=== PATIENT | female | born 1985 ===

== ENCOUNTER 2017-02-11 22:17 | Emergency (ER) | payer SELFPAY ==
[2017-02-11 22:31] VITALS: BMI 22.6
[2017-02-11 22:35] VITALS: BP 146/98; PULSE 82; RESP 18; TEMP 98.7; O2SAT 100
--- NOTE | 2017-02-11 23:44 | ED PDOC ---
Arrival/HPI - History of Present Illness Time/Duration: Other (several weeks) Symptom Onset: Gradual Symptom Course: Unchanged Activities at Onset: Light Context: Home - General Chief Complaint: Abnormal Skin Integrity Time Seen by Provider: 02/11/17 22:48 - History of Present Illness Narrative History of Present Illness (Text): 02/11/17 23:58 31 year old female who presents to the Emergency department complaining of a pruritic rash to the dorsal aspect of bilateral hands and forearms, which is worse at night, for the past several weeks. Patient states she went to the [facility] in [place], was given prednisone for 5 days, but denies any significant improvement. Patient denies any changes in lotions/soaps, recent travel, URI symptoms, fever, chills, nausea, vomiting, diarrhea, headache, or any other complaints. Patient states no one else at home has a rash, states she is the only one. (Chencho STOVER,Lynn Leger) Past Medical History - Provider Review Nursing Documentation Reviewed: Yes - Past History Past History: Non-Contributing - Infectious Disease Hx of Infectious Diseases: None - Cardiac Hx Cardiac Disorders: No - Pulmonary Hx Respiratory Disorders: No - Neurological Hx Neurological Disorder: No - HEENT Hx HEENT Disorder: No - Renal Hx Renal Disorder: No - Endocrine/Metabolic Hx Endocrine Disorders: No - Hematological/Oncological Hx Blood Disorders: No - Integumentary Hx Dermatological Disorder: No - Musculoskeletal/Rheumatological Hx Arthritis: Yes - Gastrointestinal Hx Gastrointestinal Disorders: No - Genitourinary/Gynecological Hx Genitourinary Disorders: No - Psychiatric Hx Psychophysiologic Disorder: No Hx Substance Use: No - Surgical History Hx Section: Yes (x2) - Anesthesia Hx Anesthesia: Yes Hx Anesthesia Reactions: No Hx Malignant Hyperthermia: No Family/Social History - Physician Review Nursing Documentation Reviewed: Yes Family/Social History: Unknown Family HX Smoking Status: Never Smoked Hx Alcohol Use: No Hx Substance Use: No Allergies/Home Meds Allergies/Adverse Reactions: Allergies No Known Allergies Allergy (Verified 04/23/16 14:05) Review of Systems - Physician Review All systems were reviewed & negative as marked: Yes - Review of Systems Constitutional: Normal. absent: Fevers Eyes: Normal ENT: Normal Respiratory: Normal. absent: SOB, Cough Cardiovascular: Normal. absent: Chest Pain Gastrointestinal: Normal. absent: Abdominal Pain, Diarrhea, Nausea, Vomiting Genitourinary Female: Normal. absent: Dysuria, Frequency, Hematuria, Urine Output Changes Musculoskeletal: Normal. absent: Back Pain, Neck Pain Skin: Rash Neurological: Normal. absent: Headache, Dizziness Endocrine: Normal Hemo/Lymphatic: Normal Psychiatric: Normal Physical Exam Vital Signs Reviewed: Yes Temperature: Afebrile Blood Pressure: Normal Pulse: Regular Respiratory Rate: Normal Appearance: Positive for: Well-Appearing, Non-Toxic, Comfortable Pain Distress: None Mental Status: Positive for: Alert and Oriented X 3 - Systems Exam Head: Present: Atraumatic, Normocephalic Pupils: Present: PERRL Extroacular Muscles: Present: EOMI Conjunctiva: Present: Normal Mouth: Present: Moist Mucous Membranes Neck: Present: Normal Range of Motion Respiratory/Chest: Present: Clear to Auscultation, Good Air Exchange. No: Respiratory Distress, Accessory Muscle Use Cardiovascular: Present: Regular Rate and Rhythm, Normal S1, S2. No: Murmurs Abdomen: Present: Normal Bowel Sounds. No: Tenderness, Distention, Peritoneal Signs Back: Present: Normal Inspection Upper Extremity: Present: Normal Inspection. No: Cyanosis, Edema Lower Extremity: Present: Normal Inspection. No: Edema Neurological: Present: GCS=15, CN II-XII Intact, Speech Normal Skin: Present: Warm, Dry, Rashes (Multiple erythematous raised flat lesions to dorsal aspects of bilteral hands and elbows), Normal Color Psychiatric: Present: Alert, Oriented x 3, Normal Insight, Normal Concentration Vital Signs Temp Pulse Resp BP Pulse Ox 02/11/17 22:35 98.7 F 82 18 146/98 H 100 Medical Decision Making ED Course and Treatment: 02/11/17 23:50 31 year old female who presents to the Emergency department complaining of a pruritic rash to the dorsal aspect of bilateral hands and forearms. Based on history and exam, to consider scabies and will treat as such. Instructed to f/u with the clinic, take medication as prescribed. (Chencho STOVER ,Lynn Leger) - PA / NETWORK SUPPORT ENGINEER / Resident Statement MD/DO has reviewed & agrees with the documentation as recorded. - Scribe Statement The provider has reviewed the documentation as recorded by the Scribe - Scribe Statement Nataliya Trujillo Provider Scribe Attestation: All medical record entries made by the Scribe were at my direction and personally dictated by me. I have reviewed the chart and agree that the record accurately reflects my personal performance of the history, physical exam, medical decision making, and the department course for this patient. I have also personally directed, reviewed, and agree with the discharge instructions and disposition. (Chencho STOVER,Lynn Leger) Disposition/Present on Arrival - Present on Arrival Any Indicators Present on Arrival: No History of DVT/PE: No History of Uncontrolled Diabetes: No Urinary Catheter: No History of Decub. Ulcer: No History Surgical Site Infection Following: None - Disposition Have Diagnosis and Disposition been Completed?: Yes Disposition Time: 23:15 Patient Plan: Discharge - Disposition Diagnosis: Rash, Scabies Disposition: HOME/ ROUTINE Condition: STABLE Discharge Instructions (ExitCare): Scabies (ED) Print Language: AZERI Additional Instructions: Thank you for letting us take care of you today. You were treated for rash, consider scabies. The emergency medical care you received today was directed at your acute symptoms. If you were prescribed any medication, please fill it and take as directed. It may take several days for your symptoms to resolve. Return to the Emergency Department if your symptoms worsen, do not improve, or if you have any other problems. Please contact your doctor in 2 days for re-evaluation and follow up / or call one of the physicians/clinics you have been referred to that are listed on the Patient Visit Information form that is included in your discharge packet. Bring any paperwork you were given at discharge with you along with any medications you are taking to your follow up visit. Our treatment cannot replace ongoing medical care by a primary care provider (PCP) outside of the emergency department. Thank you for allowing the [facility] team to be part of your care today. Prescriptions: Cetirizine HCl [Zyrtec] 10 mg PO DAILY #30 capsule Permethrin [Elimite] 60 gm TP ONCE #50 cream..g. Referrals: [facility] at [facility] [place] [Outside] - Follow up with primary Mary Floyd MD [Staff Provider] - Follow up with primary Forms: [employer] (Luxembourgish), WORK NOTE
== END 2017-02-12 00:10 | disposition home or self-care (01) ==
LOC: ED 22:17
DX: B86 Scabies (principal)

== ENCOUNTER 2017-05-16 11:54 | Emergency (ER) | payer OTHER ==
[2017-05-16 12:09] VITALS: BMI 22.4
[2017-05-16 12:18] VITALS: TEMP 97.8
--- NOTE | 2017-05-16 12:18 | ED PDOC ---
Arrival/HPI - General Time Seen by Provider: 05/16/17 12:05 Historian: Patient - History of Present Illness Narrative History of Present Illness (Text): 05/16/17 12:13 31yo female with PMHx of anxiety who present with complaint of chest pain. Notes that chest pain started when she bent down at work, to hand picker something. Patient has been seen here for same complaint in ED. She denies SOB, diaphoresis , dizziness, nausea, vomiting, abdominal pain, cough, trauma, back pain, any other complaint. Past Medical History - Provider Review Nursing Documentation Reviewed: Yes - Past History Past History: Non-Contributing - Infectious Disease Hx of Infectious Diseases: None - Cardiac Hx Cardiac Disorders: No - Pulmonary Hx Respiratory Disorders: No - Neurological Hx Neurological Disorder: No - HEENT Hx HEENT Disorder: No - Renal Hx Renal Disorder: No - Endocrine/Metabolic Hx Endocrine Disorders: No - Hematological/Oncological Hx Blood Disorders: No - Integumentary Hx Dermatological Disorder: No - Musculoskeletal/Rheumatological Hx Arthritis: Yes - Gastrointestinal Hx Gastrointestinal Disorders: No - Genitourinary/Gynecological Hx Genitourinary Disorders: No - Psychiatric Hx Psychophysiologic Disorder: No Hx Substance Use: No - Surgical History Hx Section: Yes (x2) - Anesthesia Hx Anesthesia: Yes Hx Anesthesia Reactions: No Hx Malignant Hyperthermia: No Family/Social History - Physician Review Nursing Documentation Reviewed: Yes Family/Social History: Unknown Family HX Smoking Status: Never Smoked Hx Alcohol Use: No Hx Substance Use: No Allergies/Home Meds Allergies/Adverse Reactions: Allergies No Known Allergies Allergy (Verified 04/23/16 14:05) Home Medications: Home Meds Medication Instructions Recorded Confirmed No Known Home Med 05/16/17 05/16/17 Review of Systems - Physician Review All systems were reviewed & negative as marked: Yes - Review of Systems Constitutional: Normal Eyes: Normal ENT: Normal Respiratory: Normal Cardiovascular: Chest Pain. absent: Palpitations, Edema, Calf Pain Gastrointestinal: Normal Genitourinary Female: Normal Musculoskeletal: Normal Skin: Normal Neurological: Normal Endocrine: Normal Hemo/Lymphatic: Normal Psychiatric: Normal Physical Exam Vital Signs Reviewed: Yes Vital Signs Temp Pulse Resp BP Pulse Ox 05/16/17 13:26 67 18 118/74 98 05/16/17 12:19 97.8 F 69 18 120/88 98 05/16/17 12:14 97.8 F 69 16 120/88 99 Temperature: Afebrile Blood Pressure: Normal Pulse: Regular Respiratory Rate: Normal Appearance: Positive for: Well-Appearing, Non-Toxic, Comfortable Pain Distress: None Mental Status: Positive for: Alert and Oriented X 3 - Systems Exam Head: Present: Atraumatic, Normocephalic Pupils: Present: PERRL Extroacular Muscles: Present: EOMI Conjunctiva: Present: Normal Mouth: Present: Moist Mucous Membranes Neck: Present: Normal Range of Motion Respiratory/Chest: Present: Clear to Auscultation, Good Air Exchange. No: Respiratory Distress, Accessory Muscle Use, Wheezes, Decreased Breath Sounds, Rales, Retracting, Rhonchi Cardiovascular: Present: Regular Rate and Rhythm, Normal S1, S2. No: Murmurs Abdomen: Present: Normal Bowel Sounds. No: Tenderness, Distention, Peritoneal Signs Back: Present: Normal Inspection Upper Extremity: Present: Normal Inspection. No: Cyanosis, Edema Lower Extremity: Present: Normal Inspection. No: Edema Neurological: Present: GCS=15, CN II-XII Intact, Speech Normal Skin: Present: Warm, Dry, Normal Color. No: Rashes Psychiatric: Present: Alert, Oriented x 3, Normal Insight, Normal Concentration Medical Decision Making ED Course and Treatment: 05/16/17 12:15 PT presented for stated history she was hemodynamically stable and neurologically intact in ED. Review of her chart, show she had a normal Echo, holter monitor, and cardiac stress in July of this year. EKG NSR @69bpm Chest xray ordered and pending. Ibuprofen given for pain control. Symptoms might be secondary to anxiety. she will be DC home if xray is negative to f/u with her PMD. 05/16/17 13:32 CXR NAD PT DC home to f/u with her PMD. Her pain resolved in ED with medication. - RAD Interpretation Radiology Orders: 05/16/17 12:12 CHEST TWO VIEWS (PA/LAT) [RAD] Stat - Medication Orders Current Medication Orders: Discontinued Medications Ibuprofen (Motrin Tab) 600 mg PO STAT STA Stop: 05/16/17 12:13 Last Admin: 05/16/17 12:23 Dose: 600 mg MAR Pain/Vitals Document 05/16/17 12:23 MS (Rec: 05/16/17 12:25 [facility] Pain Reassessment Is This A Pain ReAssessment? No Sleep Is patient sleeping during reassessment? No Presence of Pain Presence of Pain Yes Pain Scale Used Pain Scale Used Numeric Location Left, Right or Bilateral Left Pain Location Body Site Chest Description Intermittent Disposition/Present on Arrival - Present on Arrival Any Indicators Present on Arrival: No History of DVT/PE: No History of Uncontrolled Diabetes: No Urinary Catheter: No History Surgical Site Infection Following: None - Disposition Have Diagnosis and Disposition been Completed?: Yes Diagnosis: Chest pain in adult Disposition: HOME/ ROUTINE Disposition Time: 13:40 Patient Plan: Discharge Patient Problems: Current Active Problems Problem Status Onset Chest pain in adult Acute Condition: STABLE Discharge Instructions (ExitCare): Chest Pain (ED) Additional Instructions: Follow up with your doctor Return to ED for any new or worsening symptoms Referrals: [facility] [place] [Outside] - Follow up with primary
[2017-05-16 12:20] VITALS: RESP 18
[2017-05-16 13:49] VITALS: BP 121/88; PULSE 70; O2SAT 99
--- NOTE | 2017-05-16 13:56 | RAD ---
HISTORY: chest pain COMPARISON: No prior. TECHNIQUE: Chest PA and lateral FINDINGS: LUNGS: No active pulmonary disease. PLEURA: No significant pleural effusion identified. No pneumothorax apparent. CARDIOVASCULAR: Normal. OSSEOUS STRUCTURES: No significant abnormalities. VISUALIZED UPPER ABDOMEN: Normal. OTHER FINDINGS: None. IMPRESSION: No active disease.
--- NOTE | 2017-05-16 17:45 | CARD ---
APPROVED REPORT EKG Measurement Heart [id number] <Conclusion> Normal sinus rhythm Normal ECG
== END 2017-05-16 13:49 | disposition home or self-care (01) ==
LOC: ED 11:54
DX: R07.9 Chest pain, unspecified (principal)

== ENCOUNTER 2017-12-27 22:24 | Emergency (ER) | payer SELFPAY ==
[2017-12-27 23:48] VITALS: BMI 23.1
[2017-12-27 23:51] VITALS: BP 129/81; PULSE 60; RESP 16; TEMP 98.2; O2SAT 99
[2017-12-27] MEDS ORDERED: Bacitracin 500 Units/gm Oint Foilpak UD TOP ONE (23:52)
[2017-12-27] MEDS ORDERED: TDAP Vaccine 0.5 mL Syr IM ONE (23:52)
--- NOTE | 2017-12-27 23:59 | ED PDOC ---
Arrival/HPI - General Chief Complaint: Abnormal Skin Integrity Time Seen by Provider: 12/27/17 23:49 Historian: Patient - History of Present Illness Narrative History of Present Illness (Text): 12/27/17 23:56 32yo female with no pmhx who present to ED with complaint of left hand laceration. States she sustained the laceration while cleaning something and it cut her hand. She states her last TD booster was in March. she denies any other complaint. Past Medical History - Provider Review Nursing Documentation Reviewed: Yes - Past History Past History: Non-Contributing - Infectious Disease Hx of Infectious Diseases: None - Cardiac Hx Cardiac Disorders: No - Pulmonary Hx Respiratory Disorders: No - Neurological Hx Neurological Disorder: No - HEENT Hx HEENT Disorder: No - Renal Hx Renal Disorder: No - Endocrine/Metabolic Hx Endocrine Disorders: No - Hematological/Oncological Hx Blood Disorders: No - Integumentary Hx Dermatological Disorder: No - Musculoskeletal/Rheumatological Hx Arthritis: Yes - Gastrointestinal Hx Gastrointestinal Disorders: No - Genitourinary/Gynecological Hx Genitourinary Disorders: No - Psychiatric Hx Psychophysiologic Disorder: No Hx Substance Use: No - Surgical History Hx Section: Yes (x2) Hx Tubal Ligation: Yes - Anesthesia Hx Anesthesia: Yes Hx Anesthesia Reactions: No Hx Malignant Hyperthermia: No Family/Social History - Physician Review Nursing Documentation Reviewed: Yes Family/Social History: Unknown Family HX Smoking Status: Never Smoked Hx Alcohol Use: No Hx Substance Use: No Allergies/Home Meds Allergies/Adverse Reactions: Allergies No Known Allergies Allergy (Verified 12/27/17 23:47) Review of Systems - Physician Review All systems were reviewed & negative as marked: Yes - Review of Systems Constitutional: Normal Eyes: Normal ENT: Normal Respiratory: Normal Cardiovascular: Normal Gastrointestinal: Normal Genitourinary Female: Normal Musculoskeletal: Normal Skin: Other (Left hand abrasion) Neurological: Normal Endocrine: Normal Hemo/Lymphatic: Normal Psychiatric: Normal Physical Exam Vital Signs Reviewed: Yes Vital Signs Temp Pulse Resp BP Pulse Ox 12/27/17 23:50 98.2 F 60 16 129/81 99 Temperature: Afebrile Blood Pressure: Normal Pulse: Regular Respiratory Rate: Normal Appearance: Positive for: Well-Appearing, Non-Toxic, Comfortable Pain Distress: None Mental Status: Positive for: Alert and Oriented X 3 - Systems Exam Head: Present: Atraumatic, Normocephalic Pupils: Present: PERRL Extroacular Muscles: Present: EOMI Conjunctiva: Present: Normal Mouth: Present: Moist Mucous Membranes Neck: Present: Normal Range of Motion Respiratory/Chest: Present: Clear to Auscultation, Good Air Exchange. No: Respiratory Distress, Accessory Muscle Use Cardiovascular: Present: Regular Rate and Rhythm, Normal S1, S2. No: Murmurs Abdomen: No: Tenderness, Distention, Peritoneal Signs Back: Present: Normal Inspection Upper Extremity: Present: Normal Inspection. No: Cyanosis, Edema Lower Extremity: Present: Normal Inspection. No: Edema Neurological: Present: GCS=15, CN II-XII Intact, Speech Normal Skin: Present: Warm, Dry, Normal Color, Abrasion (Avulsed abrasion to left 2nd MCP area). No: Rashes Psychiatric: Present: Alert, Oriented x 3, Normal Insight, Normal Concentration Medical Decision Making ED Course and Treatment: 12/28/17 00:07 Wound was cleaned in ED with betadine and NS. Bacitracine applied and dressed. PT was placed on prophylactic abx. Referred to the clinic - Medication Orders Current Medication Orders: Discontinued Medications Bacitracin (Bacitracin) 1 ea TOP ONCE ONE Stop: 12/27/17 23:53 Clindamycin HCl (Cleocin) 300 mg PO STAT STA PRN Reason: Protocol Stop: 12/27/17 23:59 Tetanus/Reduced Diphtheria/Acell Pertussis (Boostrix Vaccine Inj) 0.5 ml IM .ONCE ONE Stop: 12/27/17 23:53 Disposition/Present on Arrival - Present on Arrival Any Indicators Present on Arrival: No History of DVT/PE: No History of Uncontrolled Diabetes: No Urinary Catheter: No History of Decub. Ulcer: No History Surgical Site Infection Following: None - Disposition Have Diagnosis and Disposition been Completed?: Yes Diagnosis: Avulsion of skin Disposition: HOME/ ROUTINE Disposition Time: 00:10 Patient Plan: Discharge Patient Problems: Current Active Problems Problem Status Onset Avulsion of skin Acute Condition: GOOD Discharge Instructions (ExitCare): Wound Care (DC) Print Language: ICELANDIC Additional Instructions: Keep the wound covered with bacitracin and a bandaid . Return if any problems or signs of infection. Prescriptions: Clindamycin [Cleocin] 300 mg PO TID 5 Days #15 cap Referrals: Kristy Romero MD [Staff Provider] - Follow up with primary Forms: [employer] (Indonesian), [employer] (Bangladeshi), SCHOOL NOTE, WORK NOTE
--- NOTE | 2017-12-28 | ED PDOC ---
Arrival/HPI - General Chief Complaint: Abnormal Skin Integrity Time Seen by Provider: 12/27/17 23:49 Historian: Patient - History of Present Illness Narrative History of Present Illness (Text): 12/28/17 23:53 Time/Duration: Other (earlier today) Symptom Onset: Sudden Symptom Course: Unchanged Context: Home Past Medical History - Provider Review Nursing Documentation Reviewed: Yes - Past History Past History: Non-Contributing - Infectious Disease Hx of Infectious Diseases: None - Cardiac Hx Cardiac Disorders: No - Pulmonary Hx Respiratory Disorders: No - Neurological Hx Neurological Disorder: No - HEENT Hx HEENT Disorder: No - Renal Hx Renal Disorder: No - Endocrine/Metabolic Hx Endocrine Disorders: No - Hematological/Oncological Hx Blood Disorders: No - Integumentary Hx Dermatological Disorder: No - Musculoskeletal/Rheumatological Hx Arthritis: Yes - Gastrointestinal Hx Gastrointestinal Disorders: No - Genitourinary/Gynecological Hx Genitourinary Disorders: No - Psychiatric Hx Psychophysiologic Disorder: No Hx Substance Use: No - Surgical History Hx Section: Yes (x2) Hx Tubal Ligation: Yes - Anesthesia Hx Anesthesia: Yes Hx Anesthesia Reactions: No Hx Malignant Hyperthermia: No Family/Social History - Physician Review Nursing Documentation Reviewed: Yes Family/Social History: Unknown Family HX Smoking Status: Never Smoked Hx Alcohol Use: No Hx Substance Use: No Allergies/Home Meds Allergies/Adverse Reactions: Allergies No Known Allergies Allergy (Verified 12/27/17 23:47) Home Medications: Home Meds Medication Instructions Recorded Confirmed No Known Home Med 05/16/17 12/27/17 Review of Systems - Physician Review All systems were reviewed & negative as marked: Yes - Review of Systems Constitutional: absent: Fevers, Night Sweats Cardiovascular: absent: Chest Pain Gastrointestinal: absent: Diarrhea, Nausea, Vomiting Musculoskeletal: absent: Back Pain, Neck Pain Skin: Other (left hand evulsion ) Neurological: absent: Headache, Dizziness Physical Exam Vital Signs Reviewed: Yes Vital Signs Temp Pulse Resp BP Pulse Ox 12/27/17 23:50 98.2 F 60 16 129/81 99 Temperature: Afebrile Blood Pressure: Normal Pulse: Regular Respiratory Rate: Normal Appearance: Positive for: Well-Appearing, Non-Toxic, Comfortable Pain Distress: None Mental Status: Positive for: Alert and Oriented X 3 - Systems Exam Head: Present: Atraumatic, Normocephalic Pupils: Present: PERRL Extroacular Muscles: Present: EOMI Conjunctiva: Present: Normal Mouth: Present: Moist Mucous Membranes Neck: Present: Normal Range of Motion Respiratory/Chest: Present: Clear to Auscultation, Good Air Exchange. No: Respiratory Distress, Accessory Muscle Use Cardiovascular: Present: Regular Rate and Rhythm, Normal S1, S2. No: Murmurs Abdomen: No: Tenderness, Distention, Peritoneal Signs Back: Present: Normal Inspection Upper Extremity: Present: Other (superficial evulsion to the metacarpel phalangial joint). No: Normal Inspection, Cyanosis, Edema Lower Extremity: Present: Other (superficial evulsion to the metacarpel phalangial joint, index finger, radial surface). No: Normal Inspection, Edema, CALF TENDERNESS, NORMAL PULSES, Cyanosis, Normal ROM, Dorothy's Sign, Tenderness, Swelling, Erythema, Deformity, Temperature Abnormalties, Neurovascularly Intact , Capillary Refill < 2 s Neurological: Present: GCS=15, CN II-XII Intact, Speech Normal Skin: Present: Warm, Dry, Normal Color. No: Rashes Psychiatric: Present: Alert, Oriented x 3, Normal Insight, Normal Concentration Medical Decision Making - Medication Orders Current Medication Orders: Discontinued Medications Bacitracin (Bacitracin) 1 ea TOP ONCE ONE Stop: 12/27/17 23:53 Tetanus/Reduced Diphtheria/Acell Pertussis (Boostrix Vaccine Inj) 0.5 ml IM .ONCE ONE Stop: 12/27/17 23:53 Disposition/Present on Arrival - Present on Arrival History of DVT/PE: No History of Uncontrolled Diabetes: No Urinary Catheter: No History of Decub. Ulcer: No History Surgical Site Infection Following: None - Disposition Diagnosis: Avulsion of skin Disposition: HOME/ ROUTINE Patient Problems: Current Active Problems Problem Status Onset Avulsion of skin Acute Condition: GOOD Discharge Instructions (ExitCare): Wound Care (DC) Print Language: SLOVENIAN Additional Instructions: Keep the wound covered with bacitracin and a bandaid . Return if any problems or signs of infection. Forms: [employer] (Yemeni), [employer] (Macanese), SCHOOL NOTE, WORK NOTE
== END 2017-12-28 00:10 | disposition home or self-care (01) ==
LOC: ED 22:24
DX: S61.201A Unspecified open wound of left index finger without damage to nail, initial encounter (principal); W45.8XXA Other foreign body or object entering through skin, initial encounter; Y92.89 Other specified places as the place of occurrence of the external cause; Z23 Encounter for immunization